=== PATIENT | female | born 1955 | race Caucasian/White ===

== ENCOUNTER 2024-08-18 10:23 | Day surgery (SDC) | payer MEDICARE ==
[2024-08-18] MEDS ORDERED: Xylocaine-Mpf 2% 5 Ml Vial IJ ONE (10:24)
[2024-08-18] MEDS ORDERED: DIPRIVAN 200 MG/20 ML IV ONE (12:18)
--- NOTE | 2024-08-18 13:43 | XRAY ---
Indication: Bilateral L4-S1 MBB. Intraoperative fluoroscopy provided for 33 seconds. 4 digital spot image submitted for interpretation demonstrates posterior needle tips projecting over the expected left and right L4-S1 nerve roots. Correlate with intraoperative findings/report. Incidental bilateral L4-S1 fusion hardware.
--- NOTE | 2024-08-18 13:53 | XRAY ---
33 seconds of fluoroscopy was used in surgery for a bilateral L4-S1 MBB.
== END 2024-08-18 12:50 | disposition home or self-care (01) ==
LOC: SDC-PAIN 10:23
PROVIDERS: ATTEND Psychiatry & Neurology Pain Medicine
DX: M47.816 Spondylosis without myelopathy or radiculopathy, lumbar region (principal); E11.9 Type 2 diabetes mellitus without complications
CPT/HCPCS: 64493; 64494; 72020; 77002; 82947; J2704

== ENCOUNTER 2024-09-15 09:40 | Day surgery (SDC) | payer MEDICARE ==
[2024-09-15] MEDS ORDERED: BUPIVACAINE 0.5% VIAL IJ ONE (09:41)
[2024-09-15] MEDS ORDERED: Depo-Medrol 40 MG/ML IM ONE (09:41)
[2024-09-15] MEDS ORDERED: LIDOCAINE HCL 1% AMPUL 5 ML IJ ONE (09:41)
[2024-09-15] MEDS ORDERED: DIPRIVAN 200 MG/20 ML IV ONE (11:05)
--- NOTE | 2024-09-15 13:22 | XRAY ---
Indication: Right L4-S1 RFA Intraoperative fluoroscopy provided for 1 minute 9 seconds. 8 digital spot image submitted for interpretation demonstrates posterior needle tips projecting over the expected right L4-S1 nerve roots. Correlate with intraoperative findings/report. Incidental bilateral L4-L5 posterior fusion hardware.
--- NOTE | 2024-09-15 14:04 | XRAY ---
One minute and 9 seconds of fluoroscopy was used in surgery for a right L4-S1 RFA.
== END 2024-09-15 11:45 | disposition home or self-care (01) ==
LOC: SDC-PAIN 09:40
PROVIDERS: ATTEND Psychiatry & Neurology Pain Medicine
DX: M47.816 Spondylosis without myelopathy or radiculopathy, lumbar region (principal); E11.9 Type 2 diabetes mellitus without complications
CPT/HCPCS: 64635; 64636; 72100; 77002; 82947; J2704

== ENCOUNTER 2024-09-22 09:44 | Day surgery (SDC) | payer MEDICARE ==
[2024-09-22] MEDS ORDERED: LIDOCAINE HCL 1% AMPUL 5 ML IJ ONE (09:45)
[2024-09-22] MEDS ORDERED: BUPIVACAINE 0.5% VIAL IJ ONE (09:45)
[2024-09-22] MEDS ORDERED: Depo-Medrol 40 MG/ML IM ONE (09:45)
[2024-09-22] MEDS ORDERED: PROVENTIL 2.5 MG/3 ML NEB IH ONE (10:28)
[2024-09-22] MEDS: PROVENTIL 2.5 MG/3 ML NEB IH ONE (10:35)
[2024-09-22 10:38] VITALS: PULSE 85; RESP 18; O2SAT 94
[2024-09-22] MEDS ORDERED: DIPRIVAN 200 MG/20 ML IV ONE (11:34)
--- NOTE | 2024-09-22 14:37 | XRAY ---
Indication: Left L4-S1 RFA. Intraoperative fluoroscopy provided for 36 seconds. 4 digital spot image submitted for interpretation demonstrates posterior needle tips projecting over the expected left L4-S1 nerve roots. Correlate with operative findings/report. Incidental bilateral L4-L5 fusion hardware.
--- NOTE | 2024-09-22 17:10 | XRAY ---
36 seconds of fluoroscopy was used in surgery for a left L4-S1 RFA.
== END 2024-09-22 12:12 | disposition home or self-care (01) ==
LOC: SDC-PAIN 09:44
PROVIDERS: ATTEND Psychiatry & Neurology Pain Medicine
DX: M47.816 Spondylosis without myelopathy or radiculopathy, lumbar region (principal); E11.9 Type 2 diabetes mellitus without complications
CPT/HCPCS: 64635; 64636; 72100; 77002; 82947; 94640; J2704; J7609; A9270-GY